=== PATIENT | female | born 2000 | race Two or more races ===

== ENCOUNTER 2023-07-10 22:13 | Emergency (ER) | payer OTHER ==
[~2023-07-10] VITALS: Ht 157.5 cm; Wt 80.3 kg
[2023-07-11 00:23] LABS: HEMATOCRIT 38.1 % (36.0-45.00); HEMOGLOBIN 12.5 g/dL (12.0-15.00); MEAN CELL VOLUME 88.1 fL (80.00-100.00); MEAN CORPUSCULAR HEMOGLOBIN 28.8 pg (27.00-32.0); MEAN CORPUSCULAR HGB CONC 32.7 g/dl (32.0-36.0); PLATELET COUNT 249 K/uL (150-450); RED BLOOD COUNT 4.32 M/uL (4.00-6.00); RED CELL DISTRIBUTION WIDTH 17.8 % (11.5-14.5)
[2023-07-11 00:33] LABS: PARTIAL THROMBOPLASTIN TIME 29.4 SECONDS (22.0-34.0); PROTHROMBIN TIME 10.5 SECONDS (9.0-11.5)
[2023-07-11 00:35] LABS: CALCIUM 9.2 mg/dL (8.5-10.1); CREATININE SERUM 1.11 mg/dL (0.55-1.02); GFR 59.89; POTASSIUM 3.87 mEq/L (3.5-5.1)
[2023-07-11 02:42] LABS: URINE APPEARANCE TURBID; URINE BILIRRUBIN MODERATE (NEGATIVE); URINE COLOR RED; URINE GLUCOSE NEGATIVE (NEGATIVE)
[2023-07-11 02:43] LABS: URINE BLOOD LARGE; URINE LEUKOCYTE NEGATIVE; URINE NITRATE NEGATIVE; URINE PROTEIN 100 (NEGATIVE)
[2023-07-11 02:44] LABS: URINE BACTERIA MODERATE; URINE MUCUS NEGATIVE
== END 2023-07-11 03:08 | disposition home or self-care (01) ==
LOC: ER 22:14
PROVIDERS: General Practice
DX: O03.6 Delayed or excessive hemorrhage following complete or unspecified spontaneous abortion (principal); Z3A.10 10 weeks gestation of pregnancy